=== PATIENT | female | born 1960 | race Caucasian/White ===

== ENCOUNTER 2016-09-01 16:48 | Emergency (ER) | payer MEDICARE ==
[~2016-09-01] VITALS: Ht 175.3 cm; Wt 59.0 kg
[2016-09-01 16:52] VITALS: BP 109/76; PULSE 96; RESP 24; TEMP 97.9; O2SAT 96
--- NOTE | 2016-09-01 18:37 | PD ---
HPI Chief Complaint: Back/ Neck Pain or Injury Time Seen by Provider: 18:36 Travel History International Travel<30 days: No Contact w/Intl Traveler<30days: No Traveled to known affect area: No History of Present Illness HPI 56-year-old female with a history of MS presents to the emergency department for evaluation of low back pain for 3-4 days. Patient states that she tripped and fell landing flat on her back a few days ago. Denies head trauma or loss of consciousness. States that she falls frequently due to her MS, this is not new for her. States that when she fell she strained her lower back and has had pain in her back since then. States that the pain is in her lower back, does not radiate. States she has a history of low back pain and that this is been flared up due to her fall. States that she feels as though the muscles are tense and that she needs something to relax them. States that she does not think that anything is broken. She denies any fever, chills, nausea, vomiting, headache, lightheadedness, dizziness, numbness or tingling, weakness, saddle anesthesia, bowel or bladder incontinence. She admits to drinking 4 alcoholic beverages today. The patient is here visiting from [place]. No other complaints. [facility] Past Medical History Medical other: Yes (MULTIPLE SCLEROSIS) ?: Not Past Surgical History Hysterectomy: Yes Social History Alcohol Use: Yes (OCCASIONALLY (2-3 DRINKS TODAY 09/01/16)) Tobacco Use: Yes (RAN OUT TWO WEEKS AGO) Substance Use: No Allergies-Medications (Allergen,Severity, Reaction): Coded Allergies: Penicillin (Verified Allergy, Severe, Shortness of Breath, 09/01/16) Ceclor (Verified Allergy, Unknown, 09/01/16) Reported Meds & Prescriptions Reported Meds & Active Scripts Active Naproxen 500 Mg Tab 500 Mg PO BID 7 Days Robaxin (Methocarbamol) 500 Mg Tab 500 Mg PO BID 5 Days Review of Systems Except as stated in HPI: all other systems reviewed are Neg Physical Exam Narrative GENERAL: Well-nourished and well-developed pleasant patient in no acute distress. SKIN: No obvious lacerations or abrasions noted. HEAD: Normocephalic and atraumatic. EYES: No scleral icterus, injection, or drainage. PERRLA. EOMI. No hyphema present. ENT: No septal hematoma or hemotympanum noted. Oropharynx is clear and the airway is patent. NECK: Supple and the trachea is midline. No obvious deformities, crepitus, or midline tenderness noted. CARDIOVASCULAR: Regular rate and rhythm. RESPIRATORY: Breath sounds are equal bilaterally with no accessory muscle use, wheezing, rhonchi, or crackles. MUSCULOSKELETAL: No obvious deformities, swelling, cyanosis, or ecchymosis is present throughout the upper and lower extremities. Patient has full range of motion without any signs of neurovascular compromise. Strength 5/5 upper and lower extremities and equal bilaterally. BACK: Mild lumbar paraspinal muscle tenderness. No obvious deformities, midline bony point tenderness, or crepitus noted throughout the thoracic and lumbar vertebrae. NEUROLOGICAL: Awake, alert, and oriented. Normal speech and gait. Cranial nerves are grossly intact. Data Data Last Documented VS Vital Signs Date Time Temp Pulse Resp B/P Pulse Ox O2 Delivery O2 Flow Rate FiO2 09/01/16 16:52 97.9 96 24 109/76 96 Room Air Orders Ketorolac Inj (Toradol Inj) (09/01/16 18:45) MDM Medical Decision Making Medical Screen Exam Complete: Yes Emergency Medical Condition: Yes Differential Diagnosis Muscle strain versus muscle spasm versus discogenic pain Narrative Course 56-year-old female presents to the emergency department for evaluation of low back pain. Patient is afebrile, vital signs are stable. She has a history of low back pain. She is reporting that she fell but states the way she fell she pulled the muscles in her lower back. I did discuss doing an x-ray of the lumbar spine with the patient. She reports that she does not want any x-ray imaging at this time. Given that she doesn't have any midline bony point tenderness I think we can forego x-ray imaging at this time. We'll give the patient Toradol 60 mg IM and she'll be discharged with Robaxin and naproxen. Discussed at length with her that she cannot drink alcohol and take muscle relaxer simultaneously, she verbalizes understanding and agreement. Advised to follow-up with her PCP. I discussed the case with my attending physician Dr. Mcdaniel who is aware of the patients history, physical examination findings, and treatment plan. Diagnosis Primary Impression: Acute exacerbation of chronic low back pain Referrals: Primary Care Physician Patient Instructions: Acute Low Back Pain (ED), General Instructions Additional Instructions: Apply heating pad to help with symptoms. Take medications as prescribed with food and a full glass of water. Do not take Robaxin with alcohol or while driving. Follow-up with your Primary Care Physician. Return to the ED for any acute worsening of symptoms. Med/Other Pt SpecificInfo: Prescription(s) given Scripts Naproxen 500 Mg Evs050 Mg PO BID 7 Days Ref 0 Prov:James Mcdaniel MD 09/01/16 Methocarbamol (Robaxin)500 Mg Vdr352 Mg PO BID 5 Days Ref 0 Prov:James Mcdaniel MD 09/01/16 Disposition: 01 DISCHARGE HOME Condition: Stable Beena Dia Sep 01, 2016 18:37
[2016-09-01] MEDS ORDERED: ROBA500T PO (18:38)
[2016-09-01] MEDS ORDERED: NAPR500T PO (18:38)
[2016-09-01] MEDS ORDERED: KETOROLAC TROMETHAMINE 60 MG/2 ML (IM) VIAL IM ONE (18:45)
== END 2016-09-01 19:06 | disposition home or self-care (01) ==
LOC: NEPB 16:48
DX: M54.5 Low back pain (principal); G89.29 Other chronic pain; G35 Multiple sclerosis; Z72.0 Tobacco use
CPT/HCPCS: 96372; 99283; J1885